=== PATIENT | male | born 1935 | race Caucasian/White ===

== ENCOUNTER 2017-05-15 06:18 | Day surgery (SDC) | payer MEDICARE, OTHER ==
[~2017-05-15 06:18] MED LIST: Gatifloxacin 0.5% Ophth Soln 2.5 ML Bot EYERT SCH; Lactated Ringers 1,000 ML IV SCH; Sodium Chloride 0.9% 5 ML Syringe FLUSH PRN
[2017-05-15] MEDS: Phenylephrine 10% Ophth Soln 5 ML Bot EYERT SCH ×3 (06:43→07:13)
[2017-05-15] MEDS: Cyclopentolate 1% Opth Soln 2 ML Bottle EYERT SCH ×3 (06:51→07:19)
[2017-05-15] MEDS ORDERED: Carbachol 0.01% Intraocular 1.5 ML Vial EYERT ONE (08:36)
[2017-05-15] MEDS ORDERED: Balanced Salt Solution Ophth Irrig 15 ML Bottle EYERT ONE (08:36)
[2017-05-15] MEDS ORDERED: Water For Irrigation,Sterile 1,500 ML Container IRR ONE (08:36)
[2017-05-15] MEDS ORDERED: EPINEPHrine 1 MG/ML SDV ONE (08:36)
[2017-05-15] MEDS ORDERED: Balanced Salt Solution Plus Ophth Irrig 500 ML Bottle IOCULAR ONE (08:36)
[2017-05-15] MEDS ORDERED: Lidocaine 2% with EPINEPHrine 1:100,000 20 ML MDV INJECT ONE (08:37)
[2017-05-15] MEDS ORDERED: Lidocaine 1% 10 ML MDV INFILT ONE (08:37)
[2017-05-15] MEDS ORDERED: Dexamethasone/Neomycin/Polymyxin B Ophth Oint 3.5 GM Tube EYERT ONE (08:37)
[2017-05-15] MEDS ORDERED: Hyaluronate Sodium 1% 0.85 ML Syringe IOCULAR ONE (08:38)
--- NOTE | 2017-05-16 08:14 | OR ---
DATE OF SURGERY: 05/15/2017 SURGEON: Jay Beckford MD PREOPERATIVE DIAGNOSIS: Cataract, right eye. POSTOPERATIVE DIAGNOSIS: Cataract, right eye. OPERATION PERFORMED: Phacoemulsification with posterior chamber lens insertion, right eye. FINDINGS: The patient was taken to the operating room where appropriate anesthesia, sedation and monitoring were provided. A retrobulbar block was given on the right side. The eye was massaged and was found to be appropriately soft. The eye and eyelids were then prepped and draped in the usual sterile manner. A lid speculum was placed. A micro sharp blade was used to enter the anterior chamber inside the limbus superior-temporally. Xylocaine was irrigated into the eye at this site. Healon was irrigated into the eye through this site. Then using a 2.85 mm corneal blade an entry was made into the anterior chamber just inside the limbus temporally. Healon was again irrigated into the eye. Then using a cystitome, the anterior capsulorrhexis was created. The lens nucleus was hydrodissected using a 27 gauge cannula and balanced salt solution. The phacoemulsification unit was introduced through the temporal site and the Guru spatula through the superior temporal site. In so doing, the lens nucleus was phacoemulsified. The cortical fragments of the lens were removed using the irrigation aspiration unit. The posterior capsule was polished. Healon was irrigated into the eye. The posterior chamber lens was inserted and rotated into position inside the capsular bag. The Healon was irrigated out of the eye. Miostat was irrigated into the eye and the pupil rounded nicely. A single interrupted 10-0 Nylon suture was placed through the temporal corneal incision site. Balanced salt solution was irrigated into the eye. The wound was tested and found to be tight. Maxitrol ointment was placed into the patient's right eye. The eyelids were closed and an eye patch and perez shield were placed. The patient left the operating room in good condition. /[id number]/MODL
== END 2017-05-15 09:50 | disposition home or self-care (01) ==
LOC: KA.SDS 06:18
PROVIDERS: ATTEND Ophthalmology
DX: H25.811 Combined forms of age-related cataract, right eye (principal); E11.9 Type 2 diabetes mellitus without complications; E78.5 Hyperlipidemia, unspecified; I48.0 Paroxysmal atrial fibrillation; G47.33 Obstructive sleep apnea (adult) (pediatric); E66.9 Obesity, unspecified; Z68.38 Body mass index [BMI] 38.0-38.9, adult; Z79.01 Long term (current) use of anticoagulants; Z79.84 Long term (current) use of oral hypoglycemic drugs; Z79.52 Long term (current) use of systemic steroids; Z79.899 Other long term (current) drug therapy; Z82.49 Family history of ischemic heart disease and other diseases of the circulatory system; Z87.891 Personal history of nicotine dependence; Z95.0 Presence of cardiac pacemaker
CPT/HCPCS: 00142; 66984; 82962; A9270; J0171; J7120; V2632

== ENCOUNTER 2020-03-06 16:23 | Emergency (ER) | payer MEDICARE, OTHER ==
--- NOTE | 2020-03-06 16:52 | EDM.PDOC ---
ED HPI GENERAL MEDICAL PROBLEM - General Chief Complaint: General Stated Complaint: HIT HIS HEAD AFTER A FALL Time Seen by Provider: 03/06/20 16:51 Source of Information: Reports: Patient - History of Present Illness INITIAL COMMENTS - FREE TEXT/NARRATIVE: Mark Anthony experienced a fall, approximately 1130 hrs. today, while stepping up on a stool to reach up in the cabinet, approximately 2 to 2-1/2 feet from the floor. Denies loss of consciousness nor any symptoms. Was in discussion with granddaughter who is a physician, felt scan was necessitated secondary of his Xarelto therapy. Applied ice immediately to the area and has somewhat controlled hematoma with no laceration or active bleeding. No dizziness nor headache has been experienced. No change in visual status, balance, nor gait has changed. Stated he was not concerned until after talking with his granddaughter who advised him of the potential for bleeding with the Xarelto anticoagulation. Onset: Today Duration: Hour(s): Location: Reports: Head Quality: Reports: Dull Severity: Moderate Improves with: Reports: Other (Ice) Worsens with: Reports: None Context: Reports: Activity Associated Symptoms: Reports: No Other Symptoms Treatments BUSINESS RISK CONSULTANT: Reports: Cold Therapy - Related Data Allergies Allergy/AdvReac Type Severity Reaction Status Date / Time No Known Drug Allergies Allergy NKDA Verified 03/06/20 16:38 Home Meds: Home Meds Acetaminophen [Tylenol Extra Strength] 500 mg PO BID PRN 05/14/17 [History] Allopurinol [Zyloprim] 300 mg PO DAILY 05/14/17 [History] Diltiazem HCl [Diltiazem 24Hr ER] 120 mg PO DAILY 05/14/17 [History] Gabapentin [Neurontin] 600 mg PO BEDTIME 05/14/17 [History] Omeprazole 20 mg PO BIDAC 05/14/17 [History] Rivaroxaban [Xarelto] 20 mg PO DAILY 05/14/17 [History] Simvastatin [Zocor] 40 mg PO BEDTIME 05/14/17 [History] Terazosin HCl [Terazosin] 10 mg PO BEDTIME 05/14/17 [History] metFORMIN [Glucophage XR] 500 mg PO WITHDINNER 05/14/17 [History] predniSONE 5 mg PO WITHBREAKFAST 05/14/17 [History] Past Medical History HEENT History: Reports: Cataract Cardiovascular History: Reports: Afib, High Cholesterol, Hypertension, Pacemaker Neurological History: Reports: None Endocrine/Metabolic History: Reports: Diabetes, Type II, Obesity/BMI 30+ Hematologic History: Reports: Anticoagulation Therapy Oncologic (Cancer) History: Reports: Other (See Below) Other Oncologic History: Skin Dermatologic History: Reports: Other (See Below) (Easy bruising, secondary anticoagulation therapy.) - Infectious Disease History Infectious Disease History: Reports: Chicken Pox - Past Surgical History HEENT Surgical History: Reports: Cataract Surgery Cardiovascular Surgical History: Reports: Pacer Social & Family History - Family History Family Medical History: Noncontributory - Tobacco Use Smoking Status *Q: Former Smoker Used Tobacco, but Quit: Yes Month/Year Tobacco Last Used: quit 40 yrs ago - Caffeine Use Caffeine Use: Reports: Coffee - Recreational Drug Use Recreational Drug Use: No ED ROS GENERAL - Review of Systems Review Of Systems: Comprehensive ROS is negative, except as noted in HPI. ED EXAM, GENERAL - Physical Exam Exam: See Below Free Text/Narrative:: Alert oriented x3 and in no distress. HEENT shows hematoma in the left parietal region with no evidence of abrasion or laceration. Minimal tenderness to palpation. No other scalp, nor head, nor facial injury is noted. PERRLA no icterus no injection, EOM intact, limited nondilated funduscopy is benign. Hearing aids removed to show somewhat pearly tympanic membranes bilateral with no evidence of hemotympanum. There is no hearing deficit with the use of his hearing aids. Stevens moist mucous membranes with no erythema, no bleeding. Neck is soft and supple no lymphadenopathy no nuchal rigidity no tenderness to the cervical spine. Thorax is clear no wheezes no crackles. Cardiac is regular I do not appreciate any murmur. Radial pulse correlates with apical. No back tenderness no spinal tenderness no flank pain. Gait is stable he is able to arise from the chair and ambulate to radiology department for the CT of the head, no contrast. Ambulates back to the department with no discomfort or concerns carrying on a appropriate conversation at all times. Course - Vital Signs Last Recorded V/S: Last Vital Signs Temp 37.5 C 03/06/20 16:30 Pulse 84 03/06/20 16:30 Resp 18 03/06/20 16:30 BP 164/80 H 03/06/20 16:30 Pulse Ox 95 03/06/20 16:30 Departure - Departure Time of Disposition: 17:36 Disposition: Home, Self-Care 01 Condition: Good Clinical Impression: Hematoma, Contusion of scalp, Anticoagulated - Discharge Information *PRESCRIPTION DRUG MONITORING PROGRAM REVIEWED*: Not Applicable *COPY OF PRESCRIPTION DRUG MONITORING REPORT IN PATIENT JIM: Not Applicable Instructions: Contusion, [id number] Referrals: Jimenez Ramon MD [Primary Care Provider] - Forms: ED Department Discharge Additional Instructions: The CT scan does not show any brain bleeding or injury. You have the bump on the side of your head with no other findings. Home and rest tonight. Have your keep an eye on you until bedtime. You should skip your Xarelto tomorrow, call your clinic/licensed occupational therapy assistant Sunday to get their advice on how many days you could skip the Xarelto safely. Continue your other medications as directed. Call or return if any questions or concerns arise. Headache, blurred vision, nausea or vomiting, or difficulty in your speech or thought process would be symptoms that should be re-checked. Sepsis Event Note (ED) - Evaluation Sepsis Screening Result: No Definite Risk - Focused Exam Vital Signs: Vital Signs Temp Pulse Resp BP Pulse Ox 03/06/20 16:30 37.5 C 84 18 164/80 H 95 - Problem List & Annotations (1) Contusion of scalp SNOMED Code(s): 02497086 Code(s): S00.03XA - CONTUSION OF SCALP, INITIAL ENCOUNTER Status: Acute Current Visit: Yes Qualifiers: Encounter type: initial encounter Qualified Code(s): S00.03XA - Contusion of scalp, initial encounter (2) Hematoma SNOMED Code(s): 184155073 Code(s): T14.8XXA - OTHER INJURY OF UNSPECIFIED BODY REGION, INITIAL ENCOUNTER Status: Acute Current Visit: Yes Annotation/Comment:: Hematoma showing on CT with no cranial fracture, no brain involvement. (3) Anticoagulated SNOMED Code(s): 525689866, 963694517 Code(s): Z79.01 - SENIOR LIVING (CURRENT) USE OF ANTICOAGULANTS Status: Acute Current Visit: Yes Annotation/Comment:: Xarelto. No measurement capabilities for immediate results are for in our facility. - Problem List Review Problem List Initiated/Reviewed/Updated: Yes - Assessment/Plan Plan: The CT scan does not show any brain bleeding or injury. You have the bump on the side of your head with no other findings. Home and rest tonight. Have your keep an eye on you until bedtime. You should skip your Xarelto tomorrow, call your clinic/licensed occupational therapy assistant Sunday to get their advice on how many days you could skip the Xarelto safely. Continue your other medications as directed. Call or return if any questions or concerns arise. Headache, blurred vision, nausea or vomiting, or difficulty in your speech or thought process would be symptoms that should be re-checked.
--- NOTE | 2020-03-06 17:19 | CT ---
[id number] CT/CT Head WO IV EXAM: CT Head WO IV CLINICAL DATA: TRAUMA COMPARISON: NO PREVIOUS SIMILAR EXAM IS AVAILABLE FOR COMPARISON. FINDINGS: Soft tissue swelling is seen in the left parietal region There is no mass or mass effect. There is no hemorrhage or hydrocephalus. There are no extra-axial fluid collections. There are no sites of abnormal attenuation. IMPRESSION: NO PLAIN CT EVIDENCE OF ACUTE INTRACRANIAL PROCESS. Onofre Woodard MD 03/06/20 [id number] Thank you for allowing us to participate in the care of your patient.
== END 2020-03-06 17:45 | disposition home or self-care (01) ==
LOC: KA.ED 16:23
DX: S00.03XA Contusion of scalp, initial encounter (principal); I48.91 Unspecified atrial fibrillation; E78.00 Pure hypercholesterolemia, unspecified; I10 Essential (primary) hypertension; E11.9 Type 2 diabetes mellitus without complications; E66.9 Obesity, unspecified; Z87.891 Personal history of nicotine dependence; Z79.899 Other long term (current) drug therapy; Z79.84 Long term (current) use of oral hypoglycemic drugs; Z79.01 Long term (current) use of anticoagulants; Z77.22 Contact with and (suspected) exposure to environmental tobacco smoke (acute) (chronic); Z68.37 Body mass index [BMI] 37.0-37.9, adult; W08.XXXA Fall from other furniture, initial encounter
CPT/HCPCS: 70450; 99283; 99284

== ENCOUNTER 2023-10-10 13:58 | Emergency (ER) | payer MEDICARE, OTHER ==
[2023-10-10] MEDS ORDERED: Sodium Chloride 0.9% 10 ML Syringe FLUSH PRN (14:18)
[2023-10-10 14:35] LABS: BASOPHILS ABSOLUTE AUTO 0.03 10^3/uL (0.00-0.10); BASOPHILS PERCENT AUTO 0.3 % (0.0-1.0); EOSINOPHILS ABSOLUTE AUTO 0.09 10^3/uL (0.10-0.30); EOSINOPHILS PERCENT AUTO 0.9 % (1.0-3.0); HEMATOCRIT 45.5 % (40.0-52.0); HEMOGLOBIN 14.9 g/dL (13.0-17.0); IMMATURE GRAN ABSOLUTE AUTO 0.02 10^3/uL (0.00-0.50); IMMATURE GRAN PERCENT AUTO 0.2 % (0.0-5.0); LYMPHOCYTES ABSOLUTE AUTO 1.72 10^3/uL (1.00-4.00); LYMPHOCYTES PERCENT AUTO 17.1 % (20.0-40.0); MEAN CORPUSCULAR HGB CONC 32.7 g/dL (32.0-36.0); MEAN CORPUSCULAR VOLUME 103.9 fL (82.0-92.0); MEAN PLATELET VOLUME 9.6 fL (7.4-10.4); MONOCYTES ABSOLUTE AUTO 0.84 10^3/uL (0.10-0.80); MONOCYTES PERCENT AUTO 8.4 % (2.0-8.0); NEUTROPHILS ABSOLUTE AUTO 7.33 10^3/uL (2.50-7.00); NEUTROPHILS PERCENT AUTO 73.1 % (50.0-70.0); PLATELET COUNT,PLT 167 10^3/uL (150-400); RED BLOOD CELL COUNT 4.38 10^6/uL (4.50-6.00); RED CELL DISTRIBUTION WIDTH 12.7 % (11.5-14.5); WHITE BLOOD CELL COUNT,WBC 10.03 10^3/uL (5.00-10.00)
[2023-10-10 14:52] LABS: B-TYPE NATRIURETIC PEPTIDE,BNP 105 pg/mL (0-100)
[2023-10-10 14:57] LABS: ALANINE AMINOTRANSFERASE,ALT 13 U/L (14-63); ALKALINE PHOSPHATASE 69 U/L (46-116); ANION GAP 14.9 mmol/L (5-15); ASPARTATE AMNIOTRANSFERASE,AST 12 U/L (15-37); BILIRUBIN TOTAL 0.5 mg/dL (0.2-1.0); BLOOD UREA NITROGEN,BUN 16 mg/dL (7-18); CALCIUM 8.7 mg/dL (8.7-10.3); CARBON DIOXIDE,CO2 29.4 mmol/L (21.0-32.0); CHLORIDE,CL 104 mmol/L (98-107); CREATININE 0.88 mg/dL (0.51-1.17); GLUCOSE RANDOM 102 mg/dL (70-140); POTASSIUM,K 4.3 mmol/L (3.5-5.1); PROTEIN TOTAL,TP 6.5 g/dL (6.4-8.2); SODIUM,NA 144 mmol/L (136-145)
[2023-10-10 14:58] LABS: ESTIMATED GFR 83 mL/min (>=60)
[2023-10-10 15:09] LABS: APPEARANCE,URINE SLIGHTLY CLOUDY (CLEAR); BILIRUBIN,URINE NEGATIVE (NEGATIVE); COLOR,URINE YELLOW (YELLOW); GLUCOSE,URINE NEGATIVE (NEGATIVE); KETONES,URINE TRACE mg/dL (NEGATIVE); LEUKOCYTE ESTERASE,URINE LARGE (NEGATIVE); NITRITE,URINE NEGATIVE (NEGATIVE); OCCULT BLOOD,URINE LARGE (NEGATIVE); PH,URINE 5.5 (5.0-9.0); PROTEIN,URINE 100 mg/dL (NEGATIVE)
[2023-10-10 15:11] LABS: BACTERIA,URINE FEW /HPF (NONE TO FEW); EPITHELIAL CELLS,URINE RARE /LPF; RBC,URINE 0-5 /HPF (0-5); WBC,URINE >100 /HPF (0-5)
[2023-10-10] MEDS: Cefdinir 300 MG Cap PO ONE (16:23)
== END 2023-10-10 16:50 | disposition home or self-care (01) ==
LOC: KA.ED 13:58
DX: N30.00 Acute cystitis without hematuria (principal); R94.31 Abnormal electrocardiogram [ECG] [EKG]; I48.91 Unspecified atrial fibrillation; E78.00 Pure hypercholesterolemia, unspecified; I10 Essential (primary) hypertension; K21.9 Gastro-esophageal reflux disease without esophagitis; E11.9 Type 2 diabetes mellitus without complications; E66.9 Obesity, unspecified; Z79.899 Other long term (current) drug therapy; Z86.19 Personal history of other infectious and parasitic diseases; Z79.84 Long term (current) use of oral hypoglycemic drugs; Z79.01 Long term (current) use of anticoagulants; Z68.37 Body mass index [BMI] 37.0-37.9, adult
CPT/HCPCS: 36415; 71045; 80053; 81001; 83880; 84484; 85025; 87086; 87088; 93005; 93010; 99284; A9270-GY

== ENCOUNTER 2024-06-14 15:55 | Inpatient (IN) | payer MEDICARE ==
[2024-06-14 16:47] LABS: BASOPHILS ABSOLUTE AUTO 0.01 10^3/uL (0.00-0.10); BASOPHILS PERCENT AUTO 0.1 % (0.0-1.0); HEMATOCRIT 43.7 % (40.0-52.0); HEMOGLOBIN 14.2 g/dL (13.0-17.0); IMMATURE GRAN ABSOLUTE AUTO 0.02 10^3/uL (0.00-0.50); IMMATURE GRAN PERCENT AUTO 0.2 % (0.0-5.0); LYMPHOCYTES ABSOLUTE AUTO 0.93 10^3/uL (1.00-4.00); LYMPHOCYTES PERCENT AUTO 7.6 % (20.0-40.0); MEAN CORPUSCULAR HEMOGLOBIN 33.5 pg (27.0-31.0); MEAN CORPUSCULAR HGB CONC 32.5 g/dL (32.0-36.0); MEAN CORPUSCULAR VOLUME 103.1 fL (82.0-92.0); MEAN PLATELET VOLUME 9.7 fL (7.4-10.4); MONOCYTES ABSOLUTE AUTO 1.31 10^3/uL (0.10-0.80); MONOCYTES PERCENT AUTO 10.8 % (2.0-8.0); NEUTROPHILS ABSOLUTE AUTO 9.91 10^3/uL (2.50-7.00); NEUTROPHILS PERCENT AUTO 81.3 % (50.0-70.0); PLATELET COUNT,PLT 157 10^3/uL (150-400); RED BLOOD CELL COUNT 4.24 10^6/uL (4.50-6.00); RED CELL DISTRIBUTION WIDTH 13.3 % (11.5-14.5); WHITE BLOOD CELL COUNT,WBC 12.18 10^3/uL (5.00-10.00)
[2024-06-14 16:53] LABS: ALBUMIN 3.22 g/dL (3.40-5.00); ANION GAP 12.2 mmol/L (5-15); BILIRUBIN TOTAL 1.2 mg/dL (0.2-1.0); CALCIUM 8.3 mg/dL (8.7-10.3); CARBON DIOXIDE,CO2 30.1 mmol/L (21.0-32.0); CREATININE 0.84 mg/dL (0.51-1.17); POTASSIUM,K 4.3 mmol/L (3.5-5.1); PROTEIN TOTAL,TP 6.6 g/dL (6.4-8.2)
[2024-06-14] MEDS: Iopamidol 755 Mg/ML 100 ML Bottle IV ONE (20:13)
[2024-06-14] MEDS: Sodium Chloride 0.9% 50 ML IV SCH (20:13)
[2024-06-14] MEDS ORDERED: oxyCODONE 5 MG Tab PO PRN (23:05)
[2024-06-14] MEDS ORDERED: Ondansetron 4 MG/2 ML SDV IV PRN (23:05)
[2024-06-14] MEDS ORDERED: Albuterol/Ipratropium 3.0-0.5 MG/3 ML Neb Soln NEB PRN (23:05)
[2024-06-14] MEDS ORDERED: Glucagon,Human Recombinant 1 MG Vial IM PRN (23:11)
[2024-06-14] MEDS ORDERED: 50% Dextrose in Water 50 ML Syringe IVPUSH PRN (23:11)
[2024-06-14] MEDS ORDERED: Non-Formulary Medication 1 Each (Simvastatin [Zocor] 40 MG Tablet) PO SCH (23:15)
[2024-06-15] MEDS: Gabapentin 300 MG Cap PO SCH (00:17)
[2024-06-15] MEDS: cefTRIAXone 2 GM Vial IVPUSH SCH (00:17)
[2024-06-15] MEDS: Terazosin 5 MG Cap PO SCH (00:18)
[2024-06-15] MEDS: atorvaSTATin 10 MG Tab PO SCH (00:18)
[2024-06-15] MEDS: Furosemide 40 MG/4 ML VIAL IVPUSH SCH (04:36)
[2024-06-15] MEDS: Furosemide 40 MG/4 ML VIAL IVPUSH ONE ×2 (04:40→11:30)
[2024-06-15 07:00] LABS: BASOPHILS ABSOLUTE AUTO 0.02 10^3/uL (0.00-0.10); BASOPHILS PERCENT AUTO 0.2 % (0.0-1.0); EOSINOPHILS ABSOLUTE AUTO 0.04 10^3/uL (0.10-0.30); EOSINOPHILS PERCENT AUTO 0.3 % (1.0-3.0); HEMATOCRIT 42.1 % (40.0-52.0); HEMOGLOBIN 13.5 g/dL (13.0-17.0); IMMATURE GRAN ABSOLUTE AUTO 0.03 10^3/uL (0.00-0.50); IMMATURE GRAN PERCENT AUTO 0.2 % (0.0-5.0); LYMPHOCYTES ABSOLUTE AUTO 1.36 10^3/uL (1.00-4.00); LYMPHOCYTES PERCENT AUTO 10.3 % (20.0-40.0); MEAN CORPUSCULAR HEMOGLOBIN 32.9 pg (27.0-31.0); MEAN CORPUSCULAR HGB CONC 32.1 g/dL (32.0-36.0); MEAN CORPUSCULAR VOLUME 102.7 fL (82.0-92.0); MEAN PLATELET VOLUME 9.1 fL (7.4-10.4); MONOCYTES ABSOLUTE AUTO 1.45 10^3/uL (0.10-0.80); PLATELET COUNT,PLT 140 10^3/uL (150-400); RED CELL DISTRIBUTION WIDTH 13.2 % (11.5-14.5)
[2024-06-15 07:14] LABS: ANION GAP 13.4 mmol/L (5-15); CALCIUM 8.2 mg/dL (8.7-10.3); CARBON DIOXIDE,CO2 29.4 mmol/L (21.0-32.0); CREATININE 0.87 mg/dL (0.51-1.17); EST CRCL DRUG DOSING (CG) 65.66 mL/min; POTASSIUM,K 3.8 mmol/L (3.5-5.1)
[2024-06-15] MEDS: Omeprazole 20 MG Cap.CR PO SCH (07:22)
[2024-06-15] MEDS: Insulin Lispro 100 Unit/ML 3 ML KwikPen SUBCUT SCH (07:50)
[2024-06-15] MEDS: Allopurinol 100 MG Tab PO SCH (08:12)
[2024-06-15] MEDS: Diltiazem 120 MG Cap.CD PO SCH (08:12)
[2024-06-15] MEDS: Rivaroxaban 10 MG Tab PO SCH (08:13)
[2024-06-15] MEDS ORDERED: Furosemide 40 MG/4 ML VIAL IVPUSH SCH (09:00)
[2024-06-15] MEDS: Budesonide 0.5 MG/2 ML Neb Susp INH SCH (09:45)
[2024-06-15] MEDS: Melatonin 3 MG Tab PO SCH (20:19)
[2024-06-15] MEDS: Acetaminophen 325 MG Tab PO PRN (22:14)
[2024-06-16 07:22] LABS: BASOPHILS ABSOLUTE AUTO 0.03 10^3/uL (0.00-0.10); BASOPHILS PERCENT AUTO 0.3 % (0.0-1.0); EOSINOPHILS ABSOLUTE AUTO 0.15 10^3/uL (0.10-0.30); EOSINOPHILS PERCENT AUTO 1.3 % (1.0-3.0); HEMOGLOBIN 13.6 g/dL (13.0-17.0); IMMATURE GRAN ABSOLUTE AUTO 0.03 10^3/uL (0.00-0.50); IMMATURE GRAN PERCENT AUTO 0.3 % (0.0-5.0); LYMPHOCYTES ABSOLUTE AUTO 0.96 10^3/uL (1.00-4.00); LYMPHOCYTES PERCENT AUTO 8.1 % (20.0-40.0); MEAN CORPUSCULAR HEMOGLOBIN 33.2 pg (27.0-31.0); MEAN CORPUSCULAR HGB CONC 32.4 g/dL (32.0-36.0); MEAN CORPUSCULAR VOLUME 102.4 fL (82.0-92.0); MEAN PLATELET VOLUME 9.2 fL (7.4-10.4); MONOCYTES ABSOLUTE AUTO 1.04 10^3/uL (0.10-0.80); MONOCYTES PERCENT AUTO 8.7 % (2.0-8.0); NEUTROPHILS ABSOLUTE AUTO 9.68 10^3/uL (2.50-7.00); NEUTROPHILS PERCENT AUTO 81.3 % (50.0-70.0); PLATELET COUNT,PLT 133 10^3/uL (150-400); RED CELL DISTRIBUTION WIDTH 12.9 % (11.5-14.5); WHITE BLOOD CELL COUNT,WBC 11.89 10^3/uL (5.00-10.00)
[2024-06-16 07:38] LABS: ALBUMIN 2.72 g/dL (3.40-5.00); ANION GAP 9.1 mmol/L (5-15); BILIRUBIN TOTAL 0.8 mg/dL (0.2-1.0); CALCIUM 8.3 mg/dL (8.7-10.3); CARBON DIOXIDE,CO2 32.4 mmol/L (21.0-32.0); CREATININE 0.83 mg/dL (0.51-1.17); EST CRCL DRUG DOSING (CG) 68.82 mL/min; POTASSIUM,K 3.5 mmol/L (3.5-5.1); PROTEIN TOTAL,TP 6.5 g/dL (6.4-8.2)
[2024-06-16] MEDS: VANCOmycin 2 GM/400 ML 400 ML IV ONE (11:29)
[2024-06-16] MEDS: Furosemide 40 MG Tab PO SCH (11:29)
[2024-06-16] MEDS: Sodium Chloride 0.9% 100 ML IV SCH (11:51)
[2024-06-16] MEDS: VANCOmycin 1 GM/200 ML 200 ML IV SCH (22:46)
[2024-06-17 07:27] LABS: BASOPHILS ABSOLUTE AUTO 0.03 10^3/uL (0.00-0.10); BASOPHILS PERCENT AUTO 0.3 % (0.0-1.0); EOSINOPHILS ABSOLUTE AUTO 0.22 10^3/uL (0.10-0.30); EOSINOPHILS PERCENT AUTO 2.1 % (1.0-3.0); HEMATOCRIT 40.9 % (40.0-52.0); HEMOGLOBIN 13.2 g/dL (13.0-17.0); IMMATURE GRAN ABSOLUTE AUTO 0.02 10^3/uL (0.00-0.50); IMMATURE GRAN PERCENT AUTO 0.2 % (0.0-5.0); LYMPHOCYTES ABSOLUTE AUTO 0.92 10^3/uL (1.00-4.00); LYMPHOCYTES PERCENT AUTO 8.9 % (20.0-40.0); MEAN CORPUSCULAR HEMOGLOBIN 33.1 pg (27.0-31.0); MEAN CORPUSCULAR HGB CONC 32.3 g/dL (32.0-36.0); MEAN CORPUSCULAR VOLUME 102.5 fL (82.0-92.0); MEAN PLATELET VOLUME 9.3 fL (7.4-10.4); MONOCYTES ABSOLUTE AUTO 0.78 10^3/uL (0.10-0.80); MONOCYTES PERCENT AUTO 7.5 % (2.0-8.0); NEUTROPHILS ABSOLUTE AUTO 8.41 10^3/uL (2.50-7.00); PLATELET COUNT,PLT 163 10^3/uL (150-400); RED BLOOD CELL COUNT 3.99 10^6/uL (4.50-6.00); RED CELL DISTRIBUTION WIDTH 12.8 % (11.5-14.5); WHITE BLOOD CELL COUNT,WBC 10.38 10^3/uL (5.00-10.00)
[2024-06-17 07:40] LABS: ALBUMIN 2.66 g/dL (3.40-5.00); BILIRUBIN TOTAL 0.5 mg/dL (0.2-1.0); CARBON DIOXIDE,CO2 31.9 mmol/L (21.0-32.0); CREATININE 0.79 mg/dL (0.51-1.17); EST CRCL DRUG DOSING (CG) 72.31 mL/min; POTASSIUM,K 3.9 mmol/L (3.5-5.1); PROTEIN TOTAL,TP 6.2 g/dL (6.4-8.2)
[2024-06-17] MEDS: VANCOmycin 1 GM/200 ML 200 ML IV SCH (08:50)
[2024-06-17] MEDS: traMADol 50 MG Tab PO PRN (11:51)
[2024-06-17] MEDS: metFORMIN 500 MG Tab.ER PO SCH (17:13)
[2024-06-18 07:46] LABS: BASOPHILS ABSOLUTE AUTO 0.04 10^3/uL (0.00-0.10); BASOPHILS PERCENT AUTO 0.4 % (0.0-1.0); EOSINOPHILS ABSOLUTE AUTO 0.23 10^3/uL (0.10-0.30); EOSINOPHILS PERCENT AUTO 2.5 % (1.0-3.0); HEMATOCRIT 43.3 % (40.0-52.0); HEMOGLOBIN 13.8 g/dL (13.0-17.0); IMMATURE GRAN ABSOLUTE AUTO 0.02 10^3/uL (0.00-0.50); IMMATURE GRAN PERCENT AUTO 0.2 % (0.0-5.0); LYMPHOCYTES ABSOLUTE AUTO 1.32 10^3/uL (1.00-4.00); LYMPHOCYTES PERCENT AUTO 14.4 % (20.0-40.0); MEAN CORPUSCULAR HEMOGLOBIN 32.9 pg (27.0-31.0); MEAN CORPUSCULAR HGB CONC 31.9 g/dL (32.0-36.0); MEAN CORPUSCULAR VOLUME 103.1 fL (82.0-92.0); MEAN PLATELET VOLUME 9.2 fL (7.4-10.4); MONOCYTES ABSOLUTE AUTO 0.72 10^3/uL (0.10-0.80); MONOCYTES PERCENT AUTO 7.9 % (2.0-8.0); NEUTROPHILS ABSOLUTE AUTO 6.81 10^3/uL (2.50-7.00); NEUTROPHILS PERCENT AUTO 74.6 % (50.0-70.0); PLATELET COUNT,PLT 185 10^3/uL (150-400); RED CELL DISTRIBUTION WIDTH 12.8 % (11.5-14.5); WHITE BLOOD CELL COUNT,WBC 9.14 10^3/uL (5.00-10.00)
[2024-06-18 09:36] VITALS: PULSE 70
[2024-06-18 10:20] LABS: ALBUMIN 2.74 g/dL (3.40-5.00); ANION GAP 10.6 mmol/L (5-15); BILIRUBIN TOTAL 0.5 mg/dL (0.2-1.0); CALCIUM 8.4 mg/dL (8.7-10.3); CARBON DIOXIDE,CO2 32.4 mmol/L (21.0-32.0); CREATININE 0.84 mg/dL (0.51-1.17); PROTEIN TOTAL,TP 6.6 g/dL (6.4-8.2)
[2024-06-18 11:42] VITALS: BP 152/76
== END 2024-06-18 11:15 | disposition swing bed (61) | DRG 638 ==
LOC: KA.ED 15:55 → KA.MS 20:55
PROVIDERS: ADMIT Physician Assistant Surgical; ATTEND Internal Medicine
DX: E11.621 Type 2 diabetes mellitus with foot ulcer (principal); R79.82 Elevated C-reactive protein (CRP); L03.116 Cellulitis of left lower limb; L97.429 Non-pressure chronic ulcer of left heel and midfoot with unspecified severity; I48.91 Unspecified atrial fibrillation; E11.9 Type 2 diabetes mellitus without complications; E11.628 Type 2 diabetes mellitus with other skin complications; I10 Essential (primary) hypertension; E78.5 Hyperlipidemia, unspecified; G47.33 Obstructive sleep apnea (adult) (pediatric); Z68.36 Body mass index [BMI] 36.0-36.9, adult; E78.00 Pure hypercholesterolemia, unspecified; H26.9 Unspecified cataract; K21.9 Gastro-esophageal reflux disease without esophagitis; M19.90 Unspecified osteoarthritis, unspecified site; F15.90 Other stimulant use, unspecified, uncomplicated; M10.9 Gout, unspecified; I48.0 Paroxysmal atrial fibrillation; E66.9 Obesity, unspecified; B35.1 Tinea unguium; G47.00 Insomnia, unspecified; Z79.1 Long term (current) use of non-steroidal anti-inflammatories (NSAID); Z79.84 Long term (current) use of oral hypoglycemic drugs; Z87.81 Personal history of (healed) traumatic fracture; Z79.899 Other long term (current) drug therapy; Z68.34 Body mass index [BMI] 34.0-34.9, adult; Z85.820 Personal history of malignant melanoma of skin; Z98.49 Cataract extraction status, unspecified eye; Z79.01 Long term (current) use of anticoagulants; Z79.02 Long term (current) use of antithrombotics/antiplatelets; Z95.0 Presence of cardiac pacemaker
CPT/HCPCS: 36415; 73701-LT; 80048; 80053; 80202; 82947; 83605; 83880; 85025; 86140; 87070; 87075; 87186; 87205; 94640; 99223-GT; 99232-GT; 99233-GT; 99239-GT; 99284; A9270-GY; J0696; J1940; J3372; J3490; Q3014; Q9967

== ENCOUNTER 2024-06-18 11:16 | Inpatient (IN) | payer MEDICARE ==
[2024-06-18] MEDS ORDERED: Sodium Chloride 0.9% 100 ML IV SCH (14:22)
[2024-06-18] MEDS ORDERED: Glucagon,Human Recombinant 1 MG Vial IM PRN (14:22)
[2024-06-18] MEDS ORDERED: Albuterol/Ipratropium 3.0-0.5 MG/3 ML Neb Soln NEB PRN (14:22)
[2024-06-18] MEDS ORDERED: 50% Dextrose in Water 50 ML Syringe IVPUSH PRN (14:22)
[2024-06-18] MEDS: Omeprazole 20 MG Cap.CR PO SCH (16:54)
[2024-06-18] MEDS: metFORMIN 500 MG Tab.ER PO SCH (18:00)
[2024-06-18] MEDS: Cefdinir 300 MG Cap PO SCH (20:04)
[2024-06-18] MEDS: Gabapentin 300 MG Cap PO SCH (20:04)
[2024-06-18] MEDS: Melatonin 3 MG Tab PO SCH (20:05)
[2024-06-18] MEDS: atorvaSTATin 10 MG Tab PO SCH (20:05)
[2024-06-18] MEDS: Doxycycline Monohydrate 100 MG Cap PO SCH (20:05)
[2024-06-18] MEDS: Terazosin 5 MG Cap PO SCH (20:11)
[2024-06-19] MEDS: Acetaminophen 325 MG Tab PO PRN (06:13)
[2024-06-19] MEDS: Allopurinol 100 MG Tab PO SCH (07:27)
[2024-06-19] MEDS: Furosemide 40 MG Tab PO SCH (07:28)
[2024-06-19] MEDS: Rivaroxaban 10 MG Tab PO SCH (07:28)
[2024-06-19] MEDS: Diltiazem 120 MG Cap.CD PO SCH (07:29)
[2024-06-19] MEDS: Budesonide 0.5 MG/2 ML Neb Susp INH SCH (07:29)
[2024-06-19] MEDS: Linezolid 600 MG/300 ML 600 MG in Premix Bag 1 BAG IV SCH ×2 (15:49→16:50)
[2024-06-19] MEDS: Cefepime 2 GM in Sodium Chloride 0.9% 50 ML IV SCH ×2 (15:49→16:00)
[2024-06-20] MEDS: traMADol 50 MG Tab PO PRN (08:15)
[2024-06-21 08:02] LABS: ALBUMIN 2.65 g/dL (3.40-5.00); ANION GAP 8.5 mmol/L (5-15); BILIRUBIN TOTAL 0.5 mg/dL (0.2-1.0); CALCIUM 8.4 mg/dL (8.7-10.3); CARBON DIOXIDE,CO2 33.4 mmol/L (21.0-32.0); CREATININE 0.85 mg/dL (0.51-1.17); EST CRCL DRUG DOSING (CG) 67.2 mL/min; POTASSIUM,K 3.9 mmol/L (3.5-5.1); PROTEIN TOTAL,TP 6.3 g/dL (6.4-8.2)
[2024-06-22] MEDS: Sodium Chloride 0.9% 100 ML IV SCH (02:59)
[2024-06-22 07:49] LABS: BASOPHILS ABSOLUTE AUTO 0.04 10^3/uL (0.00-0.10); BASOPHILS PERCENT AUTO 0.5 % (0.0-1.0); EOSINOPHILS ABSOLUTE AUTO 0.22 10^3/uL (0.10-0.30); EOSINOPHILS PERCENT AUTO 2.6 % (1.0-3.0); HEMATOCRIT 43.5 % (40.0-52.0); HEMOGLOBIN 14.2 g/dL (13.0-17.0); IMMATURE GRAN ABSOLUTE AUTO 0.05 10^3/uL (0.00-0.04); IMMATURE GRAN PERCENT AUTO 0.6 % (0.0-0.4); LYMPHOCYTES ABSOLUTE AUTO 1.15 10^3/uL (1.00-4.00); LYMPHOCYTES PERCENT AUTO 13.5 % (20.0-40.0); MEAN CORPUSCULAR HEMOGLOBIN 33.2 pg (27.0-31.0); MEAN CORPUSCULAR HGB CONC 32.6 g/dL (32.0-36.0); MEAN CORPUSCULAR VOLUME 101.6 fL (82.0-92.0); MEAN PLATELET VOLUME 9.2 fL (7.4-10.4); MONOCYTES ABSOLUTE AUTO 0.74 10^3/uL (0.10-0.80); MONOCYTES PERCENT AUTO 8.7 % (2.0-8.0); NEUTROPHILS ABSOLUTE AUTO 6.35 10^3/uL (2.50-7.00); NEUTROPHILS PERCENT AUTO 74.1 % (50.0-70.0); PLATELET COUNT,PLT 238 10^3/uL (150-400); RED BLOOD CELL COUNT 4.28 10^6/uL (4.50-6.00); RED CELL DISTRIBUTION WIDTH 12.5 % (11.5-14.5); WHITE BLOOD CELL COUNT,WBC 8.55 10^3/uL (5.00-10.00)
[2024-06-23] MEDS: Ondansetron 4 MG/2 ML SDV IV PRN (16:58)
[2024-06-23] MEDS: Linezolid 600 MG Tab PO SCH (18:12)
[2024-06-24] MEDS: Rivaroxaban 10 MG Tab PO SCH (14:49)
[2024-06-26] MEDS: Rivaroxaban 10 MG Tab PO SCH (18:03)
[2024-06-27] MEDS: Cefepime 2 GM Vial IVPUSH SCH (03:54)
[2024-06-27] MEDS ORDERED: Sodium Chloride 0.9% 50 ML SDV FLUSH SCH (04:00)
[2024-06-27] MEDS: Sodium Chloride 0.9% 10 ML Syringe FLUSH PRN (04:01)
[2024-06-27] MEDS: Rivaroxaban 10 MG Tab PO SCH (08:53)
[2024-06-29 16:36] VITALS: BP 124/66; PULSE 70
[2024-06-29] MEDS: Linezolid 600 MG Tab PO ONE (16:54)
[2024-06-29] MEDS: Linezolid 600 MG Tab ONE (17:06)
== END 2024-06-29 18:28 | disposition home or self-care (01) | DRG 638 ==
LOC: KA.MS 11:16
PROVIDERS: ADMIT Internal Medicine; ATTEND Internal Medicine
DX: E11.628 Type 2 diabetes mellitus with other skin complications (principal); L03.116 Cellulitis of left lower limb; R53.81 Other malaise; I48.0 Paroxysmal atrial fibrillation; T17.908A Unspecified foreign body in respiratory tract, part unspecified causing other injury, initial encounter; R94.31 Abnormal electrocardiogram [ECG] [EKG]; G47.33 Obstructive sleep apnea (adult) (pediatric); Z79.01 Long term (current) use of anticoagulants; Z79.1 Long term (current) use of non-steroidal anti-inflammatories (NSAID); Z79.84 Long term (current) use of oral hypoglycemic drugs; Z79.899 Other long term (current) drug therapy; Z79.02 Long term (current) use of antithrombotics/antiplatelets
CPT/HCPCS: 36415; 71045; 80053; 84484; 85025; 92610-GN; 93005; 94640; 99307-GT; 99316-GT; A9270-GY; J0692; J2020; J2405; J3490

== ENCOUNTER 2024-06-30 07:32 | Inpatient (IN) | payer MEDICARE ==
[2024-06-30] MEDS ORDERED: Sodium Chloride 0.9% 10 ML Syringe FLUSH PRN (20:05)
[2024-06-30] MEDS ORDERED: Sennosides/Docusate Sodium 50-8.6 MG Tab PO PRN (20:10)
[2024-06-30] MEDS ORDERED: oxyCODONE 5 MG Tab PO PRN (20:10)
[2024-06-30] MEDS: Gabapentin 300 MG Cap PO SCH (20:37)
[2024-06-30] MEDS: atorvaSTATin 10 MG Tab PO SCH (20:37)
[2024-06-30] MEDS: Terazosin 5 MG Cap PO SCH (20:37)
[2024-07-01] MEDS: Omeprazole 20 MG Cap.CR PO SCH (05:44)
[2024-07-01] MEDS: Furosemide 40 MG Tab PO SCH (08:20)
[2024-07-01] MEDS: Allopurinol 100 MG Tab PO SCH (08:21)
[2024-07-01] MEDS: Budesonide 0.5 MG/2 ML Neb Susp INH SCH (08:21)
[2024-07-01] MEDS: Rivaroxaban 10 MG Tab PO SCH (08:21)
[2024-07-01] MEDS: Diltiazem 120 MG Cap.CD PO SCH (08:21)
[2024-07-01] MEDS: Acetaminophen/HYDROcodone 325-5 MG Tab PO PRN (20:28)
[2024-07-01] MEDS ORDERED: 50% Dextrose in Water 50 ML Syringe IVPUSH PRN (22:29)
[2024-07-01] MEDS ORDERED: Glucagon,Human Recombinant 1 MG Vial IM PRN ×2 (22:29)
[2024-07-01] MEDS: Linezolid 600 MG/300 ML 600 MG in Premix Bag 1 BAG IV SCH (23:30)
[2024-07-02] MEDS: Cefepime 1 GM in Sodium Chloride 0.9% 50 ML IV ONE (00:53)
[2024-07-02] MEDS: Acetaminophen 325 MG Tab PO PRN (05:56)
[2024-07-02] MEDS: Cefepime 1 GM in Sodium Chloride 0.9% 50 ML IV SCH ×2 (06:46→07:14)
[2024-07-02 07:31] LABS: BASOPHILS ABSOLUTE AUTO 0.06 10^3/uL (0.00-0.10); BASOPHILS PERCENT AUTO 0.6 % (0.0-1.0); EOSINOPHILS ABSOLUTE AUTO 0.23 10^3/uL (0.10-0.30); EOSINOPHILS PERCENT AUTO 2.3 % (1.0-3.0); HEMATOCRIT 38.8 % (40.0-52.0); HEMOGLOBIN 12.8 g/dL (13.0-17.0); IMMATURE GRAN ABSOLUTE AUTO 0.01 10^3/uL (0.00-0.04); IMMATURE GRAN PERCENT AUTO 0.1 % (0.0-0.4); LYMPHOCYTES PERCENT AUTO 14.3 % (20.0-40.0); MEAN CORPUSCULAR HEMOGLOBIN 33.2 pg (27.0-31.0); MEAN CORPUSCULAR VOLUME 100.8 fL (82.0-92.0); MEAN PLATELET VOLUME 9.8 fL (7.4-10.4); MONOCYTES PERCENT AUTO 8.2 % (2.0-8.0); NEUTROPHILS ABSOLUTE AUTO 7.29 10^3/uL (2.50-7.00); NEUTROPHILS PERCENT AUTO 74.5 % (50.0-70.0); PLATELET COUNT,PLT 104 10^3/uL (150-400); RED BLOOD CELL COUNT 3.85 10^6/uL (4.50-6.00); RED CELL DISTRIBUTION WIDTH 12.4 % (11.5-14.5); WHITE BLOOD CELL COUNT,WBC 9.79 10^3/uL (5.00-10.00)
[2024-07-02 07:34] LABS: ANION GAP 9.8 mmol/L (5-15); CALCIUM 8.6 mg/dL (8.7-10.3); CARBON DIOXIDE,CO2 34.1 mmol/L (21.0-32.0); CREATININE 1.08 mg/dL (0.51-1.17); EST CRCL DRUG DOSING (CG) 52.89 mL/min; POTASSIUM,K 3.9 mmol/L (3.5-5.1)
[2024-07-02] MEDS ORDERED: Insulin Lispro 100 Unit/ML 3 ML KwikPen SUBCUT SCH (08:00)
[2024-07-02] MEDS: Linezolid 600 MG Tab PO SCH (08:41)
[2024-07-02] MEDS: DAPTOmycin 500 MG Vial IVPUSH SCH ×2 (11:48→18:24)
[2024-07-02] MEDS: Sodium Chloride 0.9% 100 ML IV SCH (15:00)
[2024-07-07 07:33] LABS: BASOPHILS ABSOLUTE AUTO 0.06 10^3/uL (0.00-0.10); BASOPHILS PERCENT AUTO 0.6 % (0.0-1.0); EOSINOPHILS ABSOLUTE AUTO 0.34 10^3/uL (0.10-0.30); EOSINOPHILS PERCENT AUTO 3.5 % (1.0-3.0); HEMATOCRIT 35.7 % (40.0-52.0); HEMOGLOBIN 11.7 g/dL (13.0-17.0); IMMATURE GRAN ABSOLUTE AUTO 0.03 10^3/uL (0.00-0.04); IMMATURE GRAN PERCENT AUTO 0.3 % (0.0-0.4); LYMPHOCYTES ABSOLUTE AUTO 1.56 10^3/uL (1.00-4.00); LYMPHOCYTES PERCENT AUTO 16.3 % (20.0-40.0); MEAN CORPUSCULAR HEMOGLOBIN 32.8 pg (27.0-31.0); MEAN CORPUSCULAR HGB CONC 32.8 g/dL (32.0-36.0); MEAN PLATELET VOLUME 10.4 fL (7.4-10.4); MONOCYTES ABSOLUTE AUTO 1.13 10^3/uL (0.10-0.80); MONOCYTES PERCENT AUTO 11.8 % (2.0-8.0); NEUTROPHILS ABSOLUTE AUTO 6.46 10^3/uL (2.50-7.00); NEUTROPHILS PERCENT AUTO 67.5 % (50.0-70.0); PLATELET COUNT,PLT 89 10^3/uL (150-400); RED BLOOD CELL COUNT 3.57 10^6/uL (4.50-6.00); RED CELL DISTRIBUTION WIDTH 12.3 % (11.5-14.5); WHITE BLOOD CELL COUNT,WBC 9.58 10^3/uL (5.00-10.00)
[2024-07-07 07:54] LABS: ALBUMIN 2.65 g/dL (3.40-5.00); ANION GAP 9.7 mmol/L (5-15); BILIRUBIN TOTAL 0.7 mg/dL (0.2-1.0); CALCIUM 8.7 mg/dL (8.7-10.3); CARBON DIOXIDE,CO2 30.9 mmol/L (21.0-32.0); CREATININE 0.95 mg/dL (0.51-1.17); EST CRCL DRUG DOSING (CG) 60.13 mL/min; POTASSIUM,K 3.6 mmol/L (3.5-5.1); PROTEIN TOTAL,TP 5.8 g/dL (6.4-8.2)
[2024-07-07] MEDS: Cefepime 1 GM Vial IVPUSH SCH (17:33)
[2024-07-09] MEDS: Nystatin Topical Powder 15 GM Bottle TOP SCH (12:38)
[2024-07-11 07:34] LABS: BASOPHILS ABSOLUTE AUTO 0.04 10^3/uL (0.00-0.10); BASOPHILS PERCENT AUTO 0.4 % (0.0-1.0); EOSINOPHILS ABSOLUTE AUTO 0.39 10^3/uL (0.10-0.30); EOSINOPHILS PERCENT AUTO 4.3 % (1.0-3.0); HEMATOCRIT 38.6 % (40.0-52.0); HEMOGLOBIN 12.4 g/dL (13.0-17.0); IMMATURE GRAN ABSOLUTE AUTO 0.06 10^3/uL (0.00-0.04); IMMATURE GRAN PERCENT AUTO 0.7 % (0.0-0.4); LYMPHOCYTES ABSOLUTE AUTO 1.74 10^3/uL (1.00-4.00); LYMPHOCYTES PERCENT AUTO 19.1 % (20.0-40.0); MEAN CORPUSCULAR HEMOGLOBIN 32.5 pg (27.0-31.0); MEAN CORPUSCULAR HGB CONC 32.1 g/dL (32.0-36.0); MEAN CORPUSCULAR VOLUME 101.3 fL (82.0-92.0); MEAN PLATELET VOLUME 9.6 fL (7.4-10.4); MONOCYTES ABSOLUTE AUTO 0.76 10^3/uL (0.10-0.80); MONOCYTES PERCENT AUTO 8.3 % (2.0-8.0); NEUTROPHILS ABSOLUTE AUTO 6.12 10^3/uL (2.50-7.00); NEUTROPHILS PERCENT AUTO 67.2 % (50.0-70.0); PLATELET COUNT,PLT 181 10^3/uL (150-400); RED BLOOD CELL COUNT 3.81 10^6/uL (4.50-6.00); RED CELL DISTRIBUTION WIDTH 12.7 % (11.5-14.5); WHITE BLOOD CELL COUNT,WBC 9.11 10^3/uL (5.00-10.00)
[2024-07-11 07:56] LABS: ALBUMIN 2.8 g/dL (3.40-5.00); ANION GAP 9.9 mmol/L (5-15); BILIRUBIN TOTAL 0.6 mg/dL (0.2-1.0); CALCIUM 8.8 mg/dL (8.7-10.3); CARBON DIOXIDE,CO2 31.9 mmol/L (21.0-32.0); CREATININE 0.94 mg/dL (0.51-1.17); EST CRCL DRUG DOSING (CG) 60.77 mL/min; POTASSIUM,K 3.8 mmol/L (3.5-5.1); PROTEIN TOTAL,TP 6.1 g/dL (6.4-8.2)
[2024-07-12] MEDS: Zinc Oxide 20% Oint 56.7 GM Tube TOP PRN (19:47)
[2024-07-17] MEDS: Nystatin Topical Powder 15 GM Bottle TOP PRN (17:20)
[2024-07-17] MEDS: Ondansetron 4 MG/2 ML SDV IV PRN (21:31)
[2024-07-20] MEDS: Doxycycline Monohydrate 100 MG Cap PO SCH (08:39)
[2024-07-21 15:32] VITALS: BP 108/62; PULSE 70
== END 2024-07-21 15:07 | disposition home health service (06) | DRG 948 ==
LOC: KA.MS 18:10
PROVIDERS: ADMIT Internal Medicine; ATTEND Internal Medicine
DX: R53.81 Other malaise (principal); I48.91 Unspecified atrial fibrillation; G47.33 Obstructive sleep apnea (adult) (pediatric); E11.628 Type 2 diabetes mellitus with other skin complications; E78.00 Pure hypercholesterolemia, unspecified; I10 Essential (primary) hypertension; K21.9 Gastro-esophageal reflux disease without esophagitis; E66.9 Obesity, unspecified; M19.90 Unspecified osteoarthritis, unspecified site; I48.0 Paroxysmal atrial fibrillation; D69.6 Thrombocytopenia, unspecified; L08.9 Local infection of the skin and subcutaneous tissue, unspecified; E11.42 Type 2 diabetes mellitus with diabetic polyneuropathy; Z95.0 Presence of cardiac pacemaker; Z79.84 Long term (current) use of oral hypoglycemic drugs; Z79.01 Long term (current) use of anticoagulants; Z79.899 Other long term (current) drug therapy; Z86.0100 Personal history of colon polyps, unspecified; Z89.422 Acquired absence of other left toe(s); Z68.34 Body mass index [BMI] 34.0-34.9, adult; Z87.81 Personal history of (healed) traumatic fracture
CPT/HCPCS: 36415; 80048; 80053; 82550; 85025; 94640; 97110-GO; 97110-GP; 97116-GP; 97165-GO; 97535-GO; 99306-GT; 99307-GT; 99316-GT; A6212; A9270-GY; J0692; J0878; J2020; J2405; J3490; Q3014